=== PATIENT | female | born 1960 | race Caucasian/White ===

== ENCOUNTER → 2021-03-14 | Outpatient (CLI) | payer OTHER ==
--- NOTE | 2021-03-14 11:30 | REPPI ---
INDICATION: M25.50 MULTIPLEJOINT PAIN. COMPARISON: None. TECHNIQUE: Four views bilateral FINDINGS: The joint spaces are symmetric and relatively well maintained. There is no evidence of acute fracture or destructive osseous lesion. Minimal marginal osteophyte is seen interphalangeal joint right hand 1st digit and minimal marginal osteophytes seen distal interphalangeal joint right hand 2nd digit IMPRESSION: No acute abnormality. Minimal chronic changes as described above. <Electronically signed by Justin Restrepo > 03/14/21 [id number]
== END ==
LOC: M PLAIMG 10:28
PROVIDERS: ATTEND Physician Assistant Medical
DX: M25.541 Pain in joints of right hand (principal); M25.542 Pain in joints of left hand; M25.741 Osteophyte, right hand

== ENCOUNTER → 2021-03-14 | Outpatient (REF) | payer OTHER ==
[2021-03-14 14:19] LABS: HEMOGLOBIN A1c 5.5 %
[2021-03-14 14:35] LABS: ALT/SGPT 42 U/L (12-78); BILIRUBIN,TOTAL 0.4 MG/DL (0.2-1.0); BLOOD UREA NITROGEN 19 MG/DL (7-18); CARBON DIOXIDE LEVEL 31 MEQ/L (21-32); CHLORIDE LEVEL 105 MEQ/L (98-107); CHOLESTEROL LEVEL 245 MG/DL (<200); CHOLESTEROL RISK RATIO 2.634 (<5); CREATININE FOR GFR 0.85 MG/DL (0.55-1.30); FREE T4 0.93 NG/DL (0.76-1.46); GLOMERULAR FILTRATION RATE > 60.0 (>45); GLUCOSE, FASTING 85 MG/DL (70-100); HDL CHOLESTEROL 93 MG/DL (>40); LDL CHOLESTEROL 136 MG/DL (<100); NON-HDL-C 152 MG/DL; POTASSIUM SERUM 4.3 MEQ/L (3.5-5.1); RHEUMATOID FACTOR QUANT < 10.0 IU/ML (<15.0); SODIUM LEVEL 139 MEQ/L (136-145); TOTAL PROTEIN 7.4 GM/DL (6.4-8.2); TRIGLYCERIDES LEVEL 81 MG/DL (<150); VITAMIN B12 LEVEL 492 PG/ML (247-911)
[2021-03-14 14:49] LABS: APPEARANCE, URINE HAZY (CLEAR); BACTERIA, URINE AUTO NEGATIVE (NEGATIVE); BILIRUBIN, URINE AUTO NEGATIVE (NEGATIVE); BLOOD, URINE BLOOD NEGATIVE (NEGATIVE); COLOR, URINE YELLOW (YELLOW); GLUCOSE, URINE (UA) AUTO NEGATIVE (NEGATIVE); KETONE, URINE AUTO NEGATIVE (NEGATIVE); LEUKOCYTE ESTERASE, URINE AUTO 3+ (NEGATIVE); NITRITE, URINE AUTO NEGATIVE (NEGATIVE); PROTEIN, URINE AUTO NEGATIVE (NEGATIVE); RBC, URINE AUTO 1 /HPF (0-3); SPECIFIC GRAVITY URINE AUTO 1.017 (1.002-1.035); SQUAMOUS EPITHELIAL CELL UR AU 1 /HPF (0-6); TRANSITIONAL EPITHELIAL AUTO 1 /HPF; UROBILINOGEN, URINE AUTO 0.2 mg/dL (0.0-2.0); WBC, URINE AUTO 15 /HPF (0-3)
== END ==
LOC: M SFHCPLAZ 10:26
PROVIDERS: ATTEND Physician Assistant Medical
DX: Z00.00 Encounter for general adult medical examination without abnormal findings (principal); Z13.220 Encounter for screening for lipoid disorders; Z84.1 Family history of disorders of kidney and ureter; Z13.1 Encounter for screening for diabetes mellitus; M25.50 Pain in unspecified joint; G62.9 Polyneuropathy, unspecified

== ENCOUNTER → 2021-04-09 | Outpatient (CLI) | payer OTHER ==
--- NOTE | 2021-04-09 15:36 | REP ---
INDICATION: PAIN IN UNSPECIFIED JOINT. COMPARISON: None. TECHNIQUE: Five views lumbosacral spine. FINDINGS: No fracture or dislocation. There is normal lumbar lordosis. There is mild disc space narrowing and subchondral sclerosis at L5-S1. There is sclerosis and spurring at the facets of L5-S1. The posterior elements are intact. IMPRESSION: Mild degenerative changes L5-S1. <Electronically signed by Troy Xie > 04/09/21 [id number]
--- NOTE | 2021-04-09 16:23 | REP ---
INDICATION: PERSONAL HISTORY OF NICOTINE DEPENDENCE. COMPARISON: None. TECHNIQUE: Noncontrast low-dose lung CT screening protocol FINDINGS: On image 71 there is a 6.6 mm solid nodule inferior lingular segment left upper lobe and anteriorly in the lower lung zone. Are no other significant left lung nodule. There is a calcified granuloma in the right upper lobe paraspinal region on image 25. Subtle ground-glass opacity right upper lobe on image 25 as well which measures about 9 mm. Linear fibrotic change in the right mid lung zone peripherally along the major fissure. No other nodules, masses, focal pleural thickening, acute infiltrate, pneumothorax or pneumomediastinum. Some cylindrical bronchiectatic change noted. IMPRESSION: Lung RADS category 3 probably benign finding. Six point 8 mm nodule in the lingula with solid appearance and a 9 mm ground-glass opacity in the right apex noted. Patients with this category of lesion have a 1-2% chance of malignancy at the time of the examination. Recommendation is for follow-up low-dose CT in 6 months time. <Electronically signed by Isidoro Mello > 04/09/21 [id number]
[2021-04-11 21:09] LABS: ANA (HEP2) Positive (.)
== END ==
LOC: M PLAIMG 13:07 → M PLALAB 13:07
PROVIDERS: ATTEND Physician Assistant Medical
DX: M25.50 Pain in unspecified joint (principal); G62.9 Polyneuropathy, unspecified; Z12.2 Encounter for screening for malignant neoplasm of respiratory organs; Z87.891 Personal history of nicotine dependence; M51.37 Other intervertebral disc degeneration, lumbosacral region; R91.1 Solitary pulmonary nodule

== ENCOUNTER → 2021-08-06 | Outpatient (CLI) | payer OTHER ==
--- NOTE | 2021-08-08 12:30 | REP ---
INDICATION: ENCNTR FOR SCREENING FOR MALIG NEOPLASM OF BREAS. COMPARISON: Multiple prior screening examinations, the most recent, 08/04/2020 TECHNIQUE: Digital screening (2D) mammography was performed bilaterally in the CC and MLO projections. Additionally, breast tomosynthesis (3D mammography) was performed bilaterally in the CC and MLO projections. FINDINGS: By history, the patient has no complaints of a palpable breast abnormality or other significant breast complaints. The Volpara volumetric breast density pattern is C, the breasts are extremely dense, which lowers the sensitivity of mammography. There is a biopsy clip in the right breast. IMPRESSION: BIRADS/ACR : Category 2: Benign finding. This patient's Tyrer-Cuzick lifetime breast cancer risk assessment score is %. This mammogram was interpreted with the aid of an FDA-approved computer-aided detection system. The patient states she had a clinical breast exam in . The patient letter being requested is category 2: Benign finding.. RECOMMENDATION: Repeat screening mammography recommended 1 year (for women over 40). <Electronically signed by Venkat Pisano > 08/08/21 [id number]
== END ==
LOC: M WHC 07:51
PROVIDERS: ATTEND Physician Assistant Medical
DX: Z12.31 Encounter for screening mammogram for malignant neoplasm of breast (principal)

== ENCOUNTER → 2021-09-20 | Outpatient (CLI) | payer OTHER ==
[~2021-09-20] MED LIST: ISOVUE-370 76% 100ML VIAL As Ordered ONE
--- NOTE | 2021-09-20 16:08 | REP ---
INDICATION: PULMONARY NODULE COMPARISON: Low-dose screening CT of the lungs 04/09/2021 the only prior TECHNIQUE: Standard helical technique after the intravenous administration of 100 cc Isovue 370 FINDINGS: The mediastinum and pulmonary gavin are within normal limits. There is no mass or adenopathy. There are no pleural or pericardial effusions. The imaged upper abdomen is within normal limits. The imaged osseous structures are within normal limits. Evaluation of the lung fallon shows no change in the 8 mm sized lingular nodule. There is no change in the subtle 9 mm sized ground-glass opacity in the right lung apex. There are no new abnormal nodules, masses, or opacities. IMPRESSION: Stable CT findings as described above. Lung rads category 2 exam. According to the revised Fleischner society criteria follow-up is recommended in 1 year. <Electronically signed by Justin Restrepo > 09/20/21 [id number]
== END ==
LOC: M RAD 15:26
PROVIDERS: ATTEND Physician Assistant Medical
DX: R91.1 Solitary pulmonary nodule (principal)
CPT/HCPCS: 71260; Q9967

== ENCOUNTER → 2022-03-19 | Outpatient (CLI) | payer OTHER ==
[2022-03-19 15:38] LABS: MEAN CORPUSCULAR HEMOGLOBIN 30.1 pg (27.0-33.0); MEAN CORPUSCULAR HGB CONC 31.8 g/dl (32.0-36.5); MEAN CORPUSCULAR VOLUME 94.6 fl (80.0-96.0); PLATELET COUNT, AUTOMATED 230 10^3/uL (150-450); RED BLOOD COUNT 4.65 10^6/uL (4.00-5.40); WHITE BLOOD COUNT 5.7 10^3/uL (4.0-10.0)
[2022-03-19 15:48] LABS: ALBUMIN 4.1 GM/DL (3.2-5.2); ALT/SGPT 32 U/L (12-78); BILIRUBIN,TOTAL 0.5 MG/DL (0.2-1.0); BLOOD UREA NITROGEN 14 MG/DL (7-18); CALCIUM LEVEL 9.6 MG/DL (8.8-10.2); CARBON DIOXIDE LEVEL 29 MEQ/L (21-32); CHLORIDE LEVEL 108 MEQ/L (98-107); CHOLESTEROL LEVEL 270 MG/DL (<200); CHOLESTEROL RISK RATIO 2.673 (<5); CREATININE FOR GFR 0.99 MG/DL (0.55-1.30); GLOMERULAR FILTRATION RATE > 60.0 (>45); GLUCOSE, FASTING 92 MG/DL (70-100); HDL CHOLESTEROL 101 MG/DL (>40); LDL CHOLESTEROL 150 MG/DL (<100); NON-HDL-C 169 MG/DL; POTASSIUM SERUM 4.5 MEQ/L (3.5-5.1); SODIUM LEVEL 142 MEQ/L (136-145); TOTAL PROTEIN 7.4 GM/DL (6.4-8.2); TRIGLYCERIDES LEVEL 93 MG/DL (<150)
[2022-03-19 16:00] LABS: TOTAL 25(OH) VITAMIN D 25.2 NG/ML (30.0-100.0)
[2022-03-19 16:07] LABS: HEMOGLOBIN A1c 5.4 %
== END ==
LOC: M PLALAB 12:51
PROVIDERS: ATTEND Nurse Practitioner Adult Health
DX: Z00.00 Encounter for general adult medical examination without abnormal findings (principal); Z13.1 Encounter for screening for diabetes mellitus; Z12.4 Encounter for screening for malignant neoplasm of cervix; Z13.29 Encounter for screening for other suspected endocrine disorder; Z13.220 Encounter for screening for lipoid disorders; N95.2 Postmenopausal atrophic vaginitis
CPT/HCPCS: 36415; 80053; 80061; 82306; 83036; 84443; 85027; G0123